=== PATIENT | female | born 1980 | race Caucasian/White ===

== ENCOUNTER 2016-09-02 18:24 | Emergency (ER) | payer OTHER ==
[~2016-09-02] VITALS: Ht 167.6 cm; Wt 68.2 kg
[2016-09-02 18:32] VITALS: BP 144/83; PULSE 70; RESP 20; O2SAT 99
--- NOTE | 2016-09-02 19:08 | DRSVH ---
PROCEDURE: X-RAY TOES, TWO VIEWS INDICATIONS: Fall, bruising TECHNIQUE: 3 views of the left second toe(s) acquired. COMPARISON: None. FINDINGS: Bones: There is an intra-articular fracture/dislocation at the base of the middle phalanx of the left second digit. No other fracture or dislocation. Soft tissues: No suspicious soft tissue densities. IMPRESSION: Intra-articular fracture/dislocation at the base of the left second digit middle phalanx. Dictated by: Latisha Stevenson M.D. on 09/02/2016 at 19:06 Approved by: Latisha Stevenson M.D. on 09/02/2016 at 19:07
--- NOTE | 2016-09-02 20:07 | ED.REPORT ---
HPI-Extremity Problem Lower Date of Service Sep 02, 2016 ED Provider: Dr. Gilliland Pt is a healthy 36 y/o female presenting to the ED due to left 2nd toe injury which occurred prior to [place]. [place] causing her to grab the leash and subsequently stub her toe on the ground. There are no other complaints or concerns. Nursing Notes Stated Complaint: POSSIBLE BROKEN TOE Chief Complaint: Extremity Trauma Nursing Notes Reviewed: Yes Allergies: Coded Allergies: No Known Allergies (Unverified , 09/02/16) General Time Seen by MD: 20:06 Chief Complaint Toe injury left 2 Hx Obtained From: Patient Arrived By: Walk-in Onset Occurred: 1 - 4 hours ago Symptom Duration: Since onset Location: : Toe left 2 Quality: Painful Severity: Current: Mild Severity: Maximum: Moderate Exacerbated by: Range of motion Past Medical History Past Medical History None reported Past Surgical History None reported Smoking History Unknown if Ever Smoker Social History Other Social History: Ambulatory Status Independent Review of Systems Musculoskeletal: Reports: Extremity pain, Extremity swelling Complete sys rev & neg: except as marked. Physical Exam Initial Vital Signs Vital Signs (First) Date Time Temp Pulse Resp B/P Pulse Ox O2 Delivery O2 Flow Rate FiO2 09/02/16 18:32 70 20 144/83 99 Room Air Initial VS: Reviewed, Vital signs normal Head / Eyes: Atraumatic, Normocephalic, PERRL ENT: Mucous membranes moist, Conjunctiva normal, No scleral icterus Neck: Full range of motion Respiratory: No respiratory distress Cardiovascular: Intact distal pulses Abdomen / GI: No distention Skin: Warm, Dry, No cyanosis Neurologic: Alert, Oriented, Nonfocal Psychiatric: Mood/affect normal, Behavior normal, Normal thought content Lower Extremity / Pelvis / MS: Neurologic intact, Vascular intact Ankle / Foot: Neurologic intact, Vascular intact Left 2nd toe: Angulated laterally Significant bruising over mid toe Pain with palpation General/Constitutional: Awake, Alert, No acute distress, Well appearing, Cooperative, Not toxic appearing Interpretation & Diagnostics X-Ray Interpretation Xray Interpretation: IMPRESSION: Intra-articular fracture/dislocation at the base of the left second digit middle phalanx. Dictated by: Latisha Stevenson M.D. on 09/02/2016 at 19:06 Approved by: Latisha Stevenson M.D. on 09/02/2016 at 19:07 Study Performed: Left toes Interpretation / Wet Read by: Interpret - Radiologist Re-Eval/Medical Decision Med Decision/Clinical Course toe was set in place and braydon taped to 3rd toe. Re-Evaluation/Progress : Time of Eval: 21:28 Re-Evaluation/Progress Note: Pt rechecked. Informed pt of plan for treatment. Pt understands and agrees with plan for treatment. F/U instructions and RTER warnings given. All questions addressed. Counseled Regarding: Diagnosis, Need for follow-up, When/why to return to ED Discharge & Departure Impression: Primary Impression: Fracture dislocation of toe of left foot Disposition: Home Discharge Condition All VS Reviewed: Yes Condition: Stable Patient Instructions: Toe Fracture (ED) Additional Instructions: You have a fracture-dislocation of your toe. Wear the post-op boot for activities. Perform activities as tolerated. Take Ibuprofen or Tylenol as directed for pain. Follow-up with your primary care doctor or the test operator which has been referred to you on Sunday for a recheck. Call to schedule an appointment. Referrals: Jose Rafael Noriega DPM Attestation Portions of this note were transcribed by Filemon Krishnamurthy. I, Dr. Gilliland personally performed the history, physical exam and medical decision-making; I reviewed and confirmed the accuracy of the information in the transcribed note. Signed by Kevin Raza, 09/02/162029 copies to: Jose Rafael Noriega DPM, Gary R DO Sep 02, 2016 20:07 FILEMON KRISHNAMURTHY Sep 02, 2016 20:16
== END 2016-09-02 21:50 | disposition home or self-care (01) ==
LOC: SED 18:24
DX: S92.522A Displaced fracture of middle phalanx of left lesser toe(s), initial encounter for closed fracture (principal); W22.09XA Striking against other stationary object, initial encounter; Y93.89 Activity, other specified; Y92.832 Beach as the place of occurrence of the external cause; Y99.8 Other external cause status